=== PATIENT | male | born 1965 | race Caucasian/White ===

== ENCOUNTER 2020-03-04 05:26 | Day surgery (SDC) | payer BC ==
[2020-02-26 16:00] LABS: BASOPHILS % (AUTO) 0.4 % (0-1); EOSINOPHILS % (AUTO) 0.7 % (0-6); LYMPHOCYTES # (AUTO) 1.2 X10'3 (1.1-4.8); LYMPHOCYTES % (AUTO) 17.4 % (21-51); MEAN CORPUSCULAR HEMOGLOBIN 26.2 PG (27.0-31.0); MEAN CORPUSCULAR HGB CONC 32.4 g/dL (33.0-36.5); MEAN CORPUSCULAR VOLUME 80.9 FL (78-98); MEAN PLATELET VOLUME 9.1 FL (7.4-10.4); MONOCYTES # (AUTO) 0.4 X10'3 (0-0.9); MONOCYTES % (AUTO) 5.1 % (2-12); NEUTROPHILS # (AUTO) 5.3 X10'3 (1.8-7.7); NEUTROPHILS % (AUTO) 76.4 % (42-75); PRE OP HEMATOCRIT 41.5 % (42.0-52.0); PRE OP HEMOGLOBIN 13.4 g/dL (14.0-17.9); PRE OP PLATELET COUNT 230 X10'3 (140-440); RED BLOOD COUNT 5.13 X10'6 (4.70-6.10); RED CELL DISTRIBUTION WIDTH 17.2 % (11.5-14.5)
[2020-02-26 16:20] LABS: ALBUMIN 3.9 G/DL (3.4-5.0); ALBUMIN/GLOBULIN RATIO 1.4 (1.1-1.5); ALKALINE PHOSPHATASE 54 IU/L (46-116); BLOOD UREA NITROGEN 22 MG/DL (7-18); BUN/CREATININE RATIO 28.2 (5.4-32.0); CALCIUM 9.2 MG/DL (8.5-10.1); CHLORIDE 104 MMOL/L (99-107); CREATININE 0.78 MG/DL (0.60-1.10); PRE OP ALT 16 U/L (30-65); PRE OP ANION GAP 8 (8-16); PRE OP AST 11 U/L (10-37); PRE OP BILIRUB, TOTAL 0.9 MG/DL (0.0-1.0); PRE OP GLUCOSE 90 MG/DL (70-104); PRE OP POTASSIUM 3.9 MMOL/L (3.4-5.1); PRE OP SODIUM 140 MMOL/L (135-145); TOTAL CARBON DIOXIDE 27.7 MMOL/L (24-32); TOTAL PROTEIN 6.6 G/DL (6.4-8.2); eGFR > 90 ML/MIN
[~2020-03-04] VITALS: Ht 175.3 cm; Wt 72.6 kg
[2020-03-04] VITALS (14 sets, daily range): BP systolic 108–133; BP diastolic 63–89
[~2020-03-04 05:26] MED LIST: ASPI-147; MELA10TA2 PO; SILD50TA PO; ringers solution, lacted 1,000 ML IV SCH
[2020-03-04] MEDS ORDERED: famotidine 20mg tablet PO ONE (05:30)
[2020-03-04] MEDS ORDERED: ceFAZolin 2gm in dextrose, iso 50 ML IV ONE (05:30)
[2020-03-04] MEDS ORDERED: LIDOcaine 1% (10mg/ml) 2ml vial ONE (05:50)
[2020-03-04] MEDS ORDERED: LIDOcaine 1% 30ml preserv. free vial ONE (06:45)
[2020-03-04] MEDS ORDERED: BUPIVAcaine/PF 2.5 mg/ml (0.25%) 30ml vial ONE (06:45)
[2020-03-04] MEDS ORDERED: fentaNYL /PF 50mcg/ml 5ml ampule ONE (07:18)
[2020-03-04] MEDS ORDERED: midazolam 2 mg/2 ml injection ONE ×2 (07:18→09:00)
[2020-03-04] MEDS ORDERED: ringers solution, lacted 1,000 ML IV SCH (07:23)
[2020-03-04] MEDS ORDERED: meperidine/PF 25mg/ml syringe IV PRN ×3 (07:25)
[2020-03-04] MEDS ORDERED: morphine 4 MG/ML inj SYRINge IV PRN (07:25)
[2020-03-04] MEDS ORDERED: acetaminophen 1,000mg/100ml IV 100 ML IV PRN (07:25)
[2020-03-04] MEDS ORDERED: labetalol 20mg/4ml (5mg/ml) syringe IV PRN (07:25)
[2020-03-04] MEDS ORDERED: proCHLORperazine 10 MG/2 ml inj IV PRN (07:25)
[2020-03-04] MEDS ORDERED: ondansetron/PF 4mg/2ml inj IV PRN (07:25)
[2020-03-04] MEDS ORDERED: morphine 2 MG/ML inj. syringe IV PRN (07:25)
[2020-03-04] MEDS ORDERED: hydrALAZINE 20mg/ml inj. IV PRN (07:25)
[2020-03-04] MEDS ORDERED: sevoflurane 250ml liquid IH ONE (07:32)
[2020-03-04] MEDS ORDERED: propofol inj 20 ML IV ONE (07:55)
[2020-03-04] MEDS ORDERED: rocuronium 10mg/ml inj IV ONE (07:55)
[2020-03-04] MEDS ORDERED: LIDOcaine 2% (20mg/ml) 5ml vial ONE (07:55)
[2020-03-04] MEDS ORDERED: ondansetron/PF 4mg/2ml inj ONE (07:55)
[2020-03-04] MEDS ORDERED: dexamethasone sod phosphate 4mg/ml inj. ONE (07:55)
[2020-03-04] MEDS ORDERED: ePHEDrine 50MG/ML INJ. ONE (08:13)
[2020-03-04] MEDS ORDERED: 0.9 % SODIUM CHLORIDE 10 ML VIAL ONE (08:13)
[2020-03-04] MEDS ORDERED: neostigmine methylsulfate 1 MG/ML 10ml vial ONE (08:55)
[2020-03-04] MEDS ORDERED: glycopyrrolate 0.2mg/ml inj ONE (08:55)
--- NOTE | 2020-03-04 09:05 | NUR ---
Received from OR via BED , accompanied by Anesthesiologist DR DO and report given by Anesthesiolgist. PATIENT WAKING UP, DENIES PAIN, V/S WNL, NEUROVASCULAR CHECKS INTACT, 20G PIV RUE, SCD ON, BANDAIDS TO LAP SIGHTS OF ABDOMEN CDI.
[2020-03-04] MEDS ORDERED: HYDROcodone/acetaminophen 5mg/325mg tablet PO PRN (09:30)
--- NOTE | 2020-03-04 10:57 | NUR ---
PATIENT UNABLE TO VOID, ENCOURAGED FLUIDS AND AMBULATION
--- NOTE | 2020-03-04 12:12 | NUR ---
PATIENT HAS VOIDED AND IS AWAITING RIDE HOME
--- NOTE | 2020-03-04 12:35 | NUR ---
PATIENT A&OX4, DENIES PAIN, V/S WNL, NEUROVASCULAR CHECKS INTACT, 20G PIV RUE D/C, SCD OFF, BANDAIDS TO LAP SIGHTS OF ABDOMEN CDI.. PATIENT HAS VOIDED 3 TIMES IN SMALL AMOUNTS AND BLADDER SCAN IS ZERO WITH 200CC TOTAL VOIDED. I HAVE REVIEWED D/C INSTRUCTIONS WITH PATIENT AND FAMILY HAVE VERBALIZED UNDERSTANDING.PATIENT WAS D/C HOME WITH ALL BELONGINGS AND FAMILY GAVE TRANSPORT HOME.R
== END 2020-03-04 12:35 | disposition home or self-care (01) ==
LOC: PAS 05:26
PROVIDERS: ATTEND Surgery
DX: K40.90 Unilateral inguinal hernia, without obstruction or gangrene, not specified as recurrent (principal); G43.909 Migraine, unspecified, not intractable, without status migrainosus; G62.9 Polyneuropathy, unspecified; Z79.899 Other long term (current) drug therapy; Z20.828 Contact with and (suspected) exposure to other viral communicable diseases; Z98.890 Other specified postprocedural states
CPT/HCPCS: 36415; 49650; 80053; 82948; 85025; 87635; 93005; C1781; J1100; J2001; J2250; J2405; J2704; J2710; J3010; J3490; J7120; S2900; A4215; A4618